=== PATIENT | female | born 1995 | race Caucasian/White ===

== ENCOUNTER 2017-05-08 09:03 | Outpatient (CLI) | payer OTHER | END 2017-05-08 09:04 | disposition home or self-care (01) | LOC: DTY/OP 09:03 | PROVIDERS: ATTEND Obstetrics & Gynecology | DX: O24.419 Gestational diabetes mellitus in pregnancy, unspecified control (principal) | CPT/HCPCS: 97802 ==

== ENCOUNTER 2017-08-08 15:16 | Outpatient (CLI) | payer BC | END 2017-08-08 15:17 | disposition home or self-care (01) | LOC: CTENTCT 15:16 | PROVIDERS: ATTEND Specialist | DX: J01.81 Other acute recurrent sinusitis (principal) | CPT/HCPCS: 70486 ==